=== PATIENT | female | born 2000 ===

== ENCOUNTER 2019-03-16 18:37 | Emergency (ER) | payer OTHER ==
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
[2019-03-16] MEDS ORDERED: FLEXERIL PO ONE (18:55)
[2019-03-16] MEDS ORDERED: IBUPROFEN PO ONE (18:55)
--- NOTE | 2019-03-16 19:31 | XRay Report ---
Right shoulder 3 views INDICATION: Right shoulder pain. IMPRESSION: No fracture or subluxation of the right shoulder is identified. Signer Name: Bello Dallas MD Signed: 03/16/2019 7:26 PM Workstation Name: [id number]
[2019-03-16] MEDS ORDERED: PERCOCET 5/325 PO STA (21:11)
[2019-03-16] MEDS ORDERED: ZOFRAN ODT PO STA (21:12)
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
[2019-03-16 21:39] VITALS: BP 106/66
== END 2019-03-16 22:20 | disposition home or self-care (01) ==
LOC: ED 18:37
DX: M62.830 Muscle spasm of back (principal); V89.2XXA Person injured in unspecified motor-vehicle accident, traffic, initial encounter; Y93.89 Activity, other specified; Y92.410 Unspecified street and highway as the place of occurrence of the external cause; Y99.8 Other external cause status
CPT/HCPCS: Q0162